=== PATIENT | male | born 1970 | race Two or more races ===

== ENCOUNTER 2024-11-06 09:46 | Inpatient (IN) | payer OTHER ==
[2024-11-06 10:09] VITALS: BMI 29.8
[2024-11-06] MEDS ORDERED: DICYCLOMINE HCL 10 MG CAPSULE PO PRN (10:30)
[2024-11-06] MEDS ORDERED: BENZOCAINE/MENTHOL (CHLORASEPTIC ) LOZENGE MM PRN (10:30)
[2024-11-06] MEDS ORDERED: BISMUTH SUBSALICYLATE 524 MG/30 ML PO PRN (10:30)
[2024-11-06] MEDS ORDERED: ACETAMINOPHEN 325 MG TABLET (FP) PO PRN (10:30)
[2024-11-06] MEDS ORDERED: MAGNESIUM HYDROX 2400MG/30ML ORAL SUSPENSION 30 ML CUP PO PRN (10:30)
[2024-11-06] MEDS ORDERED: NICOTINE POLACRILEX 4 MG GUM BUC PRN (10:30)
[2024-11-06] MEDS ORDERED: BENZONATATE 200 MG CAPSULE PO PRN (10:30)
[2024-11-06] MEDS ORDERED: ONDANSETRON *ODT* 4 MG TABLET SL PRN (10:30)
[2024-11-06] MEDS ORDERED: IBUPROFEN 600 MG TABLET (FP) PO PRN (10:30)
[2024-11-06] MEDS ORDERED: MAG HYDROX/AL HYDROX/SIMETH 30 ML UNIT-DOSE CUP PO PRN (10:30)
[2024-11-06] MEDS ORDERED: IBUPROFEN 400 MG TABLET (FP) PO PRN (10:30)
[2024-11-06] MEDS ORDERED: guaiFENesin 600 MG TABLET.ER (FP) PO PRN (10:30)
[2024-11-06] MEDS ORDERED: POLYETHYLENE GLYCOL (HEALTHYLAX) 3350 17 GM PACKET PO PRN (10:30)
[2024-11-06] MEDS ORDERED: NALOXONE (NARCAN) HCL 4 MG/0.1 ML SPRAY NS PRN (10:30)
[2024-11-06] MEDS ORDERED: LOPERAMIDE HCL 2 MG CAPSULE PO PRN (10:30)
[2024-11-06] MEDS ORDERED: METHOCARBAMOL 500 MG TABLET PO PRN (10:30)
[2024-11-06] MEDS ORDERED: PRENATAL VITAMINS W/ FOLIC ACID TABLET (FP) PO ONE (11:29)
[2024-11-06] MEDS: PRENATAL VITAMINS W/ FOLIC ACID TABLET (FP) PO SCH (11:34)
[2024-11-06] MEDS: VITAMINS A AND D TOPICAL OINTMENT TP SCH (12:34)
[2024-11-06] MEDS: hydrOXYzine PAMOATE 25 MG CAPSULE (FP) PO PRN (12:47)
[2024-11-06] MEDS: chlordiazePOXIDE HCL 25 MG CAPSULE PO PRN (12:47)
[2024-11-06] MEDS: chlordiazePOXIDE HCL 25 MG CAPSULE PO SCH (17:45)
[2024-11-06] MEDS: DIVALPROEX NA *ER* EXTEND REL 500 MG TABLET.SA (FP) PO SCH (23:07)
[2024-11-06] MEDS: THIAMINE 100 MG TABLET PO SCH (23:07)
[2024-11-06] MEDS: MELATONIN 5 MG TABLETS PO SCH (23:07)
[2024-11-07] MEDS: amLODIPine BESYLATE 10 MG TABLET (FP) PO SCH (10:40)
[2024-11-07 11:15] LABS: HEMATOCRIT 44.1 % (40.1-51.0); HEMOGLOBIN 13.9 g/dL (13.7-17.5); MCHC 31.5 g/dl (32.3-36.5); MEAN CELL VOLUME 90.4 fl (79.0-92.2); MEAN PLT VOLUME 11.6 fl (9.4-12.4); PLATELET COUNT 180 x10^3/uL (163-337); RDW 14.8 % (12.2-16.1)
[2024-11-07 11:16] LABS: POTASSIUM 4.5 mmol/L (3.5-5.1)
[2024-11-07] MEDS: ESCITALOPRAM OXALATE 10 MG TABLET PO SCH (11:23)
[2024-11-07 11:30] LABS: BLOOD UREA NITROGEN 11.6 mg/dL (7-18)
[2024-11-07 11:32] LABS: ALBUMIN 3.3 g/dl (3.4-5.0); CALCIUM 9.1 mg/dL (8.5-10.1)
[2024-11-07 11:34] LABS: BILIRUBIN,TOTAL 0.3 mg/dL (0.2-1); CREATININE 0.9 mg/dL (0.55-1.3)
[2024-11-07 11:36] LABS: TOT PROT 6.4 g/dl (6.4-8.2)
[2024-11-07] MEDS: QUEtiapine FUMARATE 200 MG TABLET PO SCH (22:45)
[2024-11-08] MEDS: chlordiazePOXIDE HCL 25 MG CAPSULE PO SCH (05:52)
[2024-11-08 21:13] VITALS: RESP 18
[2024-11-09] MEDS ORDERED: chlordiazePOXIDE HCL 10 MG CAPSULE PO PRN
[2024-11-09] MEDS: chlordiazePOXIDE HCL 10 MG CAPSULE PO SCH (06:04)
[2024-11-09 06:29] VITALS: BP 148/90; PULSE 80; TEMP 98
[2024-11-10] MEDS ORDERED: chlordiazePOXIDE HCL 10 MG CAPSULE PO SCH (05:00)
[2024-11-11] MEDS ORDERED: chlordiazePOXIDE HCL 10 MG CAPSULE PO ONE (05:00)
== END 2024-11-09 08:44 | disposition home or self-care (01) | DRG 774 ==
LOC: YASAS 09:46 → Y3N 11:28
PROVIDERS: ADMIT Allergy & Immunology; ATTEND Allergy & Immunology
PROC: HZ2ZZZZ Detoxification Services for Substance Abuse Treatment (ICD-10-PCS; principal; 2024-11-05)
DX: F10.230 Alcohol dependence with withdrawal, uncomplicated (principal); F14.20 Cocaine dependence, uncomplicated; F12.20 Cannabis dependence, uncomplicated; F17.210 Nicotine dependence, cigarettes, uncomplicated; F25.9 Schizoaffective disorder, unspecified; I10 Essential (primary) hypertension; Z87.820 Personal history of traumatic brain injury; Z56.0 Unemployment, unspecified; Z59.00 Homelessness unspecified
CPT/HCPCS: 36415; 80053; 80305; 80307; 85027; 86780; 93005; 93010